=== PATIENT | male | born 1975 | race Two or more races ===

== ENCOUNTER 2017-04-12 18:38 | Emergency (ER) | payer OTHER ==
[~2017-04-12] VITALS: Ht 170.2 cm; Wt 68.2 kg
[2017-04-12 18:44] VITALS: Ht 170.2 cm; Wt 68.2 kg
[2017-04-12] MEDS ORDERED: ONDANSETRON (ODT) 4 MG TAB ODT STA (20:41)
[2017-04-12] MEDS ORDERED: HYDROCODONE/APAP (5/325) TAB PO ONE (21:00)
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
--- NOTE | 2017-04-12 23:00 | RADRPT ---
PROCEDURE: XR Lumbar Spine. CLINICAL INDICATION: Lumbar spine pain. TECHNIQUE: AP, lateral, and cone-down lateral view of the lumbar spine were obtained. COMPARISON: No prior studies are available for comparison. FINDINGS: The alignment of the lumbar spine is within normal limits. The vertebral body heights and marrow de nsity are normal in appearance. There is preservation of the intervertebral disc spaces. There is no significant facet spondylosis. The neural foramina appear patent. The paraspinal soft tissues u nremarkable. The posterior elements are unremarkable. IMPRESSION: 1. Normal radiographs of the lumbar spine. 2. No evidence of fracture or significant degenerative disc disease. RPTAT: HGAS .Kem Mendoza MD, MD Date Time Electronically viewed and signed by .Kem Mendoza MD, on 04/12/2017 22:59 .S/
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
[2017-04-12] MEDS ORDERED: MUPI22OI2 TOP (23:29)
[2017-04-12] MEDS ORDERED: HYDR-906 PO (23:29)
[2017-04-12] MEDS ORDERED: NAPR-260 PO (23:29)
[2017-04-12 23:42] VITALS: BP 118/68; PULSE 77; RESP 18; TEMP 98.3
== END 2017-04-12 23:43 | disposition home or self-care (01) ==
LOC: FTE 18:38
DX: S49.91XA Unspecified injury of right shoulder and upper arm, initial encounter (principal); S39.92XA Unspecified injury of lower back, initial encounter; R40.4 Transient alteration of awareness; G44.309 Post-traumatic headache, unspecified, not intractable; V18.4XXA Pedal cycle driver injured in noncollision transport accident in traffic accident, initial encounter
CPT/HCPCS: 70450; 70486; 72100; 73030; Z7502; Z7610